=== PATIENT | male | born 1980 | race American Indian/Alaskan Native ===

== ENCOUNTER 2019-11-23 00:56 | Emergency (ER) | payer SELFPAY ==
[2019-11-23 02:31] VITALS: BP 165/107
[2019-11-23] MEDS ORDERED: ACETAMINOPHEN 500 MG TAB PO ONE (02:49)
[2019-11-23] MEDS ORDERED: IBUPROFEN 600 MG TAB PO ONE (02:49)
--- NOTE | 2019-11-23 03:07 | XRay Report ---
LUMBAR SPINE 2 VIEWS INDICATION: Low back pain COMPARISON: None. FINDINGS: No acute, displaced fracture is seen. Alignment is within normal limits. Disc space height is maintained. No significant degenerative changes. CONCLUSION: 1. No acute findings. 2. Degenerative changes, as above. CHEST 1 VIEW INDICATION: chest pain. COMPARISON: None. FINDINGS: Support devices: None. Heart: Normal. Lungs/Pleura: No acute pulmonary or pleural findings. IMPRESSION: 1. No acute findings. Signer Name: Lloyd Cristobal MD Signed: 11/23/2019 3:02 AM Workstation Name: [id number]
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
== END 2019-11-23 03:52 | disposition home or self-care (01) ==
LOC: ED 00:56
DX: S29.011A Strain of muscle and tendon of front wall of thorax, initial encounter (principal); M62.830 Muscle spasm of back; I10 Essential (primary) hypertension; E11.9 Type 2 diabetes mellitus without complications; F17.200 Nicotine dependence, unspecified, uncomplicated; Z79.899 Other long term (current) drug therapy; V49.49XA Driver injured in collision with other motor vehicles in traffic accident, initial encounter; Y92.410 Unspecified street and highway as the place of occurrence of the external cause; Y93.89 Activity, other specified; Y99.8 Other external cause status
CPT/HCPCS: 71045; 72100